=== PATIENT | female | born 1995 | race African-American/Black ===

== ENCOUNTER 2021-06-10 21:03 | Emergency (ER) | payer OTHER ==
[~2021-06-10] VITALS: Ht 167.6 cm; Wt 81.6 kg
--- NOTE | 2021-06-10 21:05 | NUR ---
Dr. Walker examining patient.
--- NOTE | 2021-06-10 21:07 | NUR ---
PT AURELIO BELLS. TAKEN TO BED 4
[2021-06-10 21:13] VITALS: BP 88/51
--- NOTE | 2021-06-10 21:20 | NUR ---
called poison control and spoke to John. Was informed to watch out for QRS prolongation, tachycardia, and seizures for Banophen. for haloperidol watch out for university internship depression, szx. Benzos PRN for agitation. Per poison control need EKG, drug screen of tylenol, and aspirin. On the EKG, watch for QRS wider >120 if so-- bolus bicarb & for QTC wider than 500--- optimize electrolytes. informed that patient should be observed until patient is at baseline. DAISY made aware.
--- NOTE | 2021-06-10 21:29 | NUR ---
PT MOVED TO BED 6
--- NOTE | 2021-06-10 21:57 | NUR ---
PATIENT ADVISED OF NEED FOR UA, AGREED TO STRAIGHT CATH FOR GATHER. FEMALE WITNESED USED.
[2021-06-10 22:09] LABS: BASOPHILS # (AUTO) 0.1 K/uL (0.00-0.22); BASOPHILS % (AUTO) 0.6 % (0.0-2.0); EOSINOPHILS # (AUTO) 0.1 K/uL (0-0.4); EOSINOPHILS % (AUTO) 0.6 % (0.0-4.0); HEMATOCRIT 38.2 % (36-48); HEMOGLOBIN 12.6 g/dL (12.0-16.0); LYMPHOCYTES # (AUTO) 1.8 K/uL (2.5-16.5); LYMPHOCYTES % (AUTO) 16.5 % (20.5-51.1); MEAN CORPUSCULAR HEMOGLOBIN 28 pg (27-31); MEAN CORPUSCULAR HGB CONC 33 g/dL (33-37); MEAN CORPUSCULAR VOLUME 86.1 fL (80-94); MONOCYTES # (AUTO) 1.2 K/uL (0.8-1.0); MONOCYTES % (AUTO) 10.9 % (1.7-9.3); NEUTROPHILS # (AUTO) 7.7 K/uL (1.8-7.7); NEUTROPHILS % (AUTO) 71.4 % (42.2-75.2); PLATELET COUNT (AUTO) 233 K/uL (140-450); RED BLOOD CELL COUNT(AUTO) 4.43 MIL/uL (4.20-5.40); RED CELL DISTRIBUTION WIDTH 13.8 % (11.6-13.7); WHITE BLOOD COUNT (AUTO) 10.7 K/uL (4.8-10.8)
[2021-06-10 22:36] LABS: ALBUMIN 3.4 g/dL (3.4-5.0); ANION GAP 13.1 (8-16); ASPARTATE AMINOTRANSFERASE 13 U/L (15-37); CARBON DIOXIDE 25.3 mmol/L (21-32); CHLORIDE 105 mmol/L (98-107); GFR ARICAN-AMERICAN 86 mL/min (>90); GLUCOSE 88 mg/dL (74-106); LIPASE 60 U/L (73-393); MAGNESIUM 1.5 mg/dL (1.8-2.4); POTASSIUM 3.4 mmol/L (3.5-5.1); SODIUM SERUM 140 mmol/L (136-145); TOTAL BILIRUBIN 0.2 mg/dL (0.0-1.0); UREA NITROGEN, BLOOD 19 mg/dL (7-18)
[2021-06-10 22:37] LABS: ACETAMINOPHEN < 0.5 ug/ml (10-30); SALICYLATE < 2.8 mg/dL (2.8-20.0)
[2021-06-10 22:44] LABS: BARBITURATE, URINE NEGATIVE ng/ml (NEG <=200); BENZODIAZEPINE, URINE NEGATIVE ng/mL (NEG <=200); CANNABINOID, URINE NEGATIVE ng/mL (NEG <=50); COCAINE, URINE NEGATIVE ng/mL (NEG <=300); OPIATE, URINE NEGATIVE ng/mL (NEG <=2000); PHENCYCLIDINE SCREEN,URINE NEGATIVE ng/mL (NEG <=25)
--- NOTE | 2021-06-10 23:47 | NUR ---
POISON CONTROL ADVISED TO RECHECK EKG AT 6HR CONI REFERENCE # [id number]
--- NOTE | 2021-06-11 00:42 | NUR ---
PATIENT AMBULATED TO RESTROOM
--- NOTE | 2021-06-11 07:25 | NUR ---
REPORT RECEIVED FROM ALEXANDR PINA FOR TRANSFER OF CARE FOR SHIFT
--- NOTE | 2021-06-11 07:48 | NUR ---
PER ERMD 12 LEAD WAS DONE ON PT AND CAME BACK NSR AT 65 HR.
--- NOTE | 2021-06-11 07:59 | NUR ---
PT AMBULATED TO RESTROOM, GAIT STEADY
--- NOTE | 2021-06-11 08:07 | NUR ---
PT BACK INTO ROOM 6 AND PLACED BACK ONTO [employer]. PT PROVIDED WITH BREAKFAST TRAY
--- NOTE | 2021-06-11 09:43 | NUR ---
Spoke with Stephani from poison control for pt updates and Dr. Nieves's plan of care. Pt is medically cleared and to be telespsyched and possible inpatient admission.
--- NOTE | 2021-06-11 10:27 | NUR ---
Received intake for patient. Information was faxed to the following facilities for review for placement. [facility]/ [facility]/ [facility]/ [facility]/ [facility] Will keep facility updated with any information regarding placement
--- NOTE | 2021-06-11 11:34 | NUR ---
PATIENT CURRENTLY ON TELEPSY CALL VIA VIDEO CHAT
--- NOTE | 2021-06-11 12:15 | NUR ---
PT PROVIDED WITH LUNCH TRAY
--- NOTE | 2021-06-11 12:26 | NUR ---
Confirmed with Theresa patient has been accepted to [facility] called and spoke with facility Accepted to Dr. Herve Valentin Nurse to nurse - [phone]
--- NOTE | 2021-06-11 12:42 | NUR ---
CALLED FACILITY TO PROVIDE REPORT, BUT WAS TOLD BY DANIELLE SHIFT CHANGE OCCURS AT 1530. TOLD DANIELLE WILL CALL AT 1545 TO PROVIDE REPORT TO RECIEVING RN FOR PATIENT TRANSFER
--- NOTE | 2021-06-11 15:02 | NUR ---
PT AMBULATED TO RESTROOM, GAIT STEADY
--- NOTE | 2021-06-11 15:05 | NUR ---
PT AMBUALTED BACK TO ROOM 6, GAIT STEADY
--- NOTE | 2021-06-11 15:09 | NUR ---
[facility] ARRIVED FOR PATIENT TRANSPORT TO [facility]. REPORT NOT CALLED YET DUE TO SHIFT CHANGE OCCURING AT 1530. WILL CALL AT [phone] TO PROVIDE REPORT
[2021-06-11 15:10] VITALS: BP 115/73
--- NOTE | 2021-06-11 15:10 | NUR ---
Patient to be transferred to [facility]. Is being transferred due to MENTAL HEALTH TREATMENT. Receiving facility has accepting physician and available space. ER physician has signed transfer form. Patient or responsible republican has agreed to transfer and signed form. Patient belongings inventoried and will be sent with patient. Copy of nursing notes, lab reports, EKG, Physicians Orders and X-rays to be sent with patient. Report called to NOT DONE DUE TO SHIFT CHANGE TO OCCUR AT 1530. WILL CALL AT 1545 TO GIVE REPORT at receiving facility. [facility] ambulance service has been called for transfer. ETA is 1600.
--- NOTE | 2021-06-11 16:09 | NUR ---
Patient to be transferred to [facility]. Is being transferred due to [facility]. Receiving facility has accepting physician and available space. ER physician has signed transfer form. Patient or responsible alliance party has agreed to transfer and signed form. Patient belongings inventoried and will be sent with patient. Copy of nursing notes, lab reports, EKG, Physicians Orders and X-rays to be sent with patient. Report called to ALEXANDR CORBIN at receiving facility. [facility] ambulance service has been called for transfer.
== END 2021-06-11 15:10 ==
LOC: MED 21:03
DX: T43.4X1A Poisoning by butyrophenone and thiothixene neuroleptics, accidental (unintentional), initial encounter (principal); Z20.822 Contact with and (suspected) exposure to COVID-19; T50.991A Poisoning by other drugs, medicaments and biological substances, accidental (unintentional), initial encounter; R45.851 Suicidal ideations; Y92.89 Other specified places as the place of occurrence of the external cause
CPT/HCPCS: 36415; 80053; 80305; 83690; 83735; 85025; 87426; 93005; 99285; G0480; G0482; U0003